=== PATIENT | male | born 1950 | race Two or more races ===

== ENCOUNTER 2016-07-01 08:16 | Day surgery (SDC) | payer OTHER ==
[2016-06-30 14:31] VITALS: BMI 27.2
[2016-07-01] MEDS ORDERED: PROPOFOL 20 ML ONE ×3 (09:08)
[2016-07-01 10:00] VITALS: TEMP 98.2
[2016-07-01] MEDS ORDERED: ONDANSETRON 4 MG/2 ML VIAL IVPUSH PRN (10:03)
[2016-07-01] MEDS ORDERED: LACTATED RINGERS SOLUTION 1,000 ML IV SCH (10:15)
[2016-07-01 10:46] VITALS: BP 115/73; PULSE 69
--- NOTE | 2016-07-02 13:17 | PATH ---
Surgical Pathology Report Patient Name: TRI BHAKTA [facility]. Rec. #: [id number] /Age/Gender: 1950 (Age: 65) / M Account: [id number] Location: U-ENDOSCOPY Taken: 07/01/2016 Received: 07/01/2016 Reported: 07/02/2016 Physicians: Burton Gupta D.O. Specimen(s) Received A: POLYP PROXIMAL TRANSVERSE COLON B: BX POLYP HEPATIC FLEXURE C: BX RECTAL POLYP Clinical History Screening Hemorrhoids, colon polyp Final Diagnosis A. COLON, PROXIMAL TRANSVERSE, POLYP, POLYPECTOMY: FRAGMENTS OF TUBULAR ADENOMA. B. COLON, HEPATIC FLEXURE, POLYP, BIOPSY: TUBULAR ADENOMA. C. RECTUM, POLYP BIOPSY: TUBULAR ADENOMA. Electronically Signed Atul Medley M.D. Gross Description A. Received in formalin, labeled "polyp proximal transverse colon" are 2 [place], polypoid portions of soft tissue measuring 0.5 and 0.6 cm in greatest dimension. The specimens are submitted in toto in one cassette. B. Received in formalin, labeled "biopsy polyp hepatic flexure" are 2 [place], irregular portions of soft tissue measuring 0.1 and 0.4 cm in greatest dimension. The specimens are submitted in toto in one cassette. C. Received in formalin, labeled "biopsy rectal polyp" is a españa, irregular portion of soft tissue measuring 0.4 cm in greatest dimension. The specimen is submitted in toto in one cassette. 07/01/201607/01/2016
== END 2016-07-01 10:45 | disposition home or self-care (01) ==
LOC: JASU-ENDO 08:16
PROVIDERS: ATTEND Internal Medicine Gastroenterology
PROC: 0DBE8ZX Excision of Large Intestine, Via Natural or Artificial Opening Endoscopic, Diagnostic (ICD-10-PCS; 2016-07-01)
PROC: 0DBP8ZX Excision of Rectum, Via Natural or Artificial Opening Endoscopic, Diagnostic (ICD-10-PCS; 2016-07-01)
PROC: 0DBE8ZX Excision of Large Intestine, Via Natural or Artificial Opening Endoscopic, Diagnostic (ICD-10-PCS; 2016-07-01)
PROC: 0DBL8ZX Excision of Transverse Colon, Via Natural or Artificial Opening Endoscopic, Diagnostic (ICD-10-PCS; principal; 2016-07-01 09:00)
DX: Z12.11 Encounter for screening for malignant neoplasm of colon (principal); K62.1 Rectal polyp; D12.3 Benign neoplasm of transverse colon; K63.5 Polyp of colon; K64.8 Other hemorrhoids
CPT/HCPCS: 88305-TC